=== PATIENT | female | born 2000 | race Two or more races ===

== ENCOUNTER 2025-06-05 17:37 | Emergency (ER) | payer OTHER ==
[~2025-06-05] VITALS: Ht 160 cm; Wt 86.5 kg
--- NOTE | 2025-06-05 18:09 | ED.PDOC ---
VALVER HPI Comments A 25 year-old female presents to the ED with a chief complaint of vaginal bleeding with associated cramping as of this morning. Patient states she was seen at [facility] yesterday for suspected food poisoning where found out she is X4-5 weeks with her first child. Patient has no further complaints at this time and otherwise denies further associated symptoms of fever, chills, dysuria, hematuria, V/D, or abdominal pain. Chief Complaint: Vaginal Bleed Time Seen by MD: 18:01 Reviewed Notes: Nurses Notes, Medications, Allergies Allergies: Coded Allergies: NO KNOWN ALLERGIES (Unverified , 06/05/25) Information Source: Patient Mode of Arrival: Ambulatory Timing: Hours Prehospital treatment: None Severity: Moderate Onset Of Mass/Bleeding: Spontaneous Associated Signs and Symptoms: Vaginal Bleeding, Cramping Past Medical History PAST MEDICAL HISTORY: Denies Surgical History: Denies all surgeries BOILER CONTROL TECHNICIAN History: No Pertinent BOILER CONTROL TECHNICIAN History 1 Family History Family History: Reviewed,noncontributory to illness, No family hx of Cancer, No family hx of DM, No family hx of Heart maral, No family hx of HTN, No family hx ofKidney maral, No family hx of Liver maral, No family hx of Lung maral, No family hx of Stroke Social History Smoker: Non-Smoker Alcohol: Denies ETOH Use Drugs: Denies Drug Use Lives In: Home Constitutional: denies: chills, diaphoresis, fatigue, fever, malaise, sweats, weakness, others EENTM: denies: blurred vision, double vision, ear bleeding, ear discharge, ear drainage, ear pain, ear ringing, eye pain, eye redness, hearing loss, mouth pain, mouth swelling, nasal discharge, nose bleeding, nose congestion, nose pain, photophobia, tearing, throat pain, throat swelling, voice changes, others Respiratory: denies: cough, hemoptysis, orthopnea, SOB at rest, shortness of breath, SOB with excertion, stridor, wheezing, others Cardiovascular: denies: chest pain, dizzy spells, diaphoresis, Dyspnea on exertion, edema, irregular heart beat, left arm pain, lightheadedness, palpitations, PND, syncope, others Gastrointestinal: denies: abdomen distended, abdominal pain, blood streaked bowels, constipated, diarrhea, dysphagia, difficulty swallowing, hematemesis, melena, nausea, poor appetite, poor fluid intake, rectal bleeding, rectal pain, vomiting, others Genitourinary: reports: abnormal vagina bleeding, , others (cramping ); denies: burning, dyspareunia, dysuria, flank pain, frequency, hematuria, incontinence, pain, vagina discharge, urgency Neurological: denies: dizziness, fainting, headache, left sided numbness, left sided weakness, numbness, paresthesia, pre-existing deficit, right sided numbness, right sided weakness, seizure, speech problems, tingling, tremors, weakness, others Musculoskeletal: denies: back pain, gout, joint pain, joint swelling, muscle pain, muscle stiffness, neck pain, others Integumetry: denies: bruises, change in color, change in hair/nails, dryness, laceration, lesions, lumps, rash, wounds, others Allergic/Immunocompromised: denies: Difficulty Healing, Frequent Infections, Hives, Itching, others Hematologic/Lymphatic: denies: anemia, blood clots, easy bleeding, easy bruising, swollen glands, others Endocrine: denies: excessive hunger, excessive sweating, excessive thirst, excessive urination, flushing, intolerance to cold, intolerance to heat, unexplained weight gain, unexplained weight loss, others Psychiatric: denies: anxiety, bipolar disorder, depression, hopeless, panic disorder, schizophrenia, sleepless, suicidal, others All Other Systems: Reviewed and Negative Physical Exam General Appearance: No Apparent Distress HEENT: Normal ENT Inspection, Pharynx Normal, TMs Normal Neck: Full Range of Motion, Non-Tender, Normal, Normal Inspection Respiratory: Chest Non-Tender, Lungs Clear, No Accessory Muscle Use, No Respiratory Distress, Normal Breath Sounds Cardiovascular: No Edema, No JVD, No Murmur, No Gallop, Normal Peripheral Pulses, Regular Rate/Rhythm Breast Exam: Deferred Gastrointestinal: No Organomegaly, Non Tender, No Pulsatile Mass, Normal Bowel Sounds, Soft Genitalia: Deferred Pelvic: Deferred Rectal: Deferred Extremities: No calf tenderness, Normal capillary refill, Normal inspection, Normal range of motion, Non-tender, No pedal edema Musculoskeletal : Apperance: Normal Neurologic: Alert, pneumatic riveter II-XII nml as Tested, No Motor Deficits, Normal Affect, Normal Mood, No Sensory Deficits Cerebellar Function: Normal Reflexes: Normal Skin: Dry, Normal Color, Warm Lymphatic: No Adenopathy Was a procedure done? Was a procedure done?: No Differential Diagnosis (BOILER CONTROL TECHNICIAN) Vaginal Bleeding: - Incomplete, - Threatened, Menstrual Bleeding, UTI X-Ray, Labs, Meds, VS Vital Signs Date Time Temp Pulse Resp B/P (MAP) Pulse Ox O2 Delivery O2 Flow Rate FiO2 06/05/25 17:40 98.3 97 18 144/63 89 98.3 Lab Test 06/05/25 18:07 Range/Units Beta HCG, Quantitative 84222.7 H 1.5-4.2 mIU/[place] [address] The ultrasound of the pelvis shows: IMPRESSION: Single living intrauterine with an estimated gestational age of 6 weeks, 0 days, corresponding to an estimated date of delivery of 01/29/2026. Small subchorionic hemorrhage. At this time, the patient is being discharged and will follow up with the primary care doctor The patient will return to the emergency department's condition worsens Images Reviewed?: Images reviewed and evaluated by me Time of 1ST Reevaluation: 18:33 Reevaluation 1ST: Unchanged Patient Education/Counseling: Diagnosis, Treatment, Prognosis, Need For Follow Up Family Education/Counseling: No Family Present Departure 1 Departure Time of Disposition: 20:17 Impression: Primary Impression: Threatened Disposition: 01 HOME / SELF CARE / HOMELESS Condition: Fair Discharged With: Self Critical Care Note Critical Care Time?: No Stability Stability form required: No Heart Score Heart Score: Heart Score Response (Comments) Value History N/A 0 EKG N/A 0 Age N/A 0 Risk Factors N/A 0 Troponin N/A 0 Total 0 I personally scribed for HOLLI MATUTE MD ([email or web address]) on 06/05/25 at 18:09. E lectronically submitted by Naya Anaya ([facility]). HOLLI MATUTE MD Jun 05, 2025 18:09
--- NOTE | 2025-06-05 20:07 | DVH ---
OBSTETRIC ULTRASOUND PRIOR TO 14 WEEKS CLINICAL INDICATION: pain and bleeding vaginal bleeding TECHNIQUE: Multiple grayscale ultrasound images were obtained of the pelvis via transabdominal and tr ansvaginal approach for obstetric evaluation. Limited color Doppler and spectral Doppler acquisitions were also obtained. COMPARISON: None FINDINGS: Uterus: 8.6 x 5.7 x 4.8 cm. There is a single intrauterine gestational sac is visualized. A nasrin e is visualized measuring 0.29 cm compatible with an estimated gestational age of 5 weeks, 6 days. F etal cardiac activity is present with heart rate of 113 beats per minute. A normal yolk sac is prese nt. Right adnexa: right ovary 2.8 x 2.0 x 2.9 cm. Normal arterial blood flow in the ovary. No right adnex al mass seen. Left adnexa: left ovary 2.2 x 1.4 x 2.3 cm. Normal arterial blood flow in the ovary. No left adnexal mass seen. Other: Small subchorionic hemorrhage measures 2.7 cm. IMPRESSION: Single living intrauterine with an estimated gestational age of 6 weeks, 0 days, correspo nding to an estimated date of delivery of 01/29/2026. Small subchorionic hemorrhage.
[2025-06-05 20:40] LABS: Urine Protein, UAD Negative (Negative)
[2025-06-05 22:50] VITALS: BP 144/63; PULSE 89; RESP 18; TEMP 98.3; O2SAT 97
== END 2025-06-05 22:57 | disposition home or self-care (01) ==
LOC: ER 17:37
DX: O20.0 Threatened abortion (principal); Z3A.01 Less than 8 weeks gestation of pregnancy
CPT/HCPCS: 36415; 76801; 76817; 81001; 84702